=== PATIENT | female | born 1970 | race Caucasian/White ===

== ENCOUNTER → 2018-12-05 | Outpatient (CLI) | payer OTHER ==
--- NOTE | 2018-12-06 17:56 | RAD ---
DATE: 12/05/2018 EXAM: MAMMO ULISES SCREENING BILATERAL HISTORY: Routine screening COMPARISON: 02/11/2011 mammographic exam This study was interpreted with the benefit of Computerized Aided Detection (CAD). Breast Density: FATTY The breast parenchyma is primarily fatty replaced. Breast parenchyma level density A. FINDINGS: No suspicious mass or calcification cluster. No distortion. IMPRESSION: Stable BI-RADS CATEGORY: 1 NEGATIVE RECOMMENDED FOLLOW-UP: 12M 12 MONTH FOLLOW-UP PQRS compliance statement: Patient information was entered into a reminder system with a target due date in one year for the next mammogram. Mammography is a sensitive method for finding small breast cancers, but it does not detect them all and is not a substitute for careful clinical examination. A negative mammogram does not negate a clinically suspicious finding and should not result in delay in biopsying a clinically suspicious abnormality. "Our facility is accredited by the [employer] Mammography [employer]."
== END | disposition home or self-care (01) ==
LOC: MAMMO 08:01
PROVIDERS: ATTEND Family Medicine
DX: Z12.31 Encounter for screening mammogram for malignant neoplasm of breast (principal)
CPT/HCPCS: 77063; 77067

== ENCOUNTER → 2018-12-20 | Outpatient (CLI) | payer OTHER ==
[2018-12-20 08:25] LABS: BASO % 1 % (0-3); EOS # 0.5 x10^3/uL (0.0-0.7); EOS % 7 % (0-3); HEMATOCRIT 38.3 % (36.0-47.0); HEMOGLOBIN 13.1 g/dL (12.0-15.5); LYMPH # 1.6 x10^3/uL (1.0-4.8); LYMPH % 22 % (24-48); MEAN CORPUSCULAR HEMOGLOBIN 29 pg (25-35); MEAN CORPUSCULAR HGB CONC 34 g/dL (31-37); MEAN CORPUSCULAR VOLUME 85 fL (79-100); MONO # 0.5 x10^3/uL (0.0-1.1); MONO % 7 % (0-9); NEUT # 4.7 x10^3/uL (1.8-7.7); NEUT % 64 % (31-73); PLATELET COUNT 341 x10^3/uL (140-400); RED BLOOD COUNT 4.49 x10^6/uL (3.50-5.40); RED CELL DISTRIBUTION WIDTH 14.8 % (11.5-14.5); WHITE BLOOD COUNT 7.3 x10^3/uL (4.0-11.0)
[2018-12-20 08:42] LABS: ALBUMIN 3.8 g/dL (3.4-5.0); ALBUMIN/GLOBULIN RATIO 0.8 (1.0-1.7); CALCIUM 9.4 mg/dL (8.5-10.1); CREATININE 0.9 mg/dL (0.6-1.0); GFR 66.3; POTASSIUM 3.9 mmol/L (3.5-5.1); TOTAL BILIRUBIN 0.2 mg/dL (0.2-1.0); TOTAL PROTEIN 8.3 g/dL (6.4-8.2)
[2018-12-20 08:44] LABS: CHOLESTEROL/HDL RATIO 5.8
[2018-12-20 08:48] LABS: BILIRUBIN,URINE NEGATIVE (NEG); CLARITY,URINE CLEAR; COLOR,URINE YELLOW; NITRITE,URINE NEGATIVE (NEG); PROTEIN,URINE NEGATIVE (NEG-TRACE); UROBILINOGEN,URINE 0.2 mg/dL (0.2 mg/dL)
[2018-12-20 09:07] LABS: BACTERIA,URINE 0 /HPF (0-FEW); RBC,URINE RARE /HPF (0-2); WBC,URINE 0 /HPF (0-4)
[2018-12-20 09:08] LABS: SQUAMOUS EPITHELIAL CELL,UR FEW /LPF
== END | disposition home or self-care (01) ==
LOC: LAB 07:35
PROVIDERS: ATTEND Family Medicine
DX: R23.2 Flushing (principal); E78.00 Pure hypercholesterolemia, unspecified
CPT/HCPCS: 36415; 80053; 80061; 81001; 85025

== ENCOUNTER → 2018-12-25 | Outpatient (CLI) | payer OTHER | END | disposition home or self-care (01) | LOC: LAB 13:24 | PROVIDERS: ATTEND Family Medicine | DX: R23.2 Flushing (principal) | CPT/HCPCS: 36415; 84443 ==

== ENCOUNTER → 2019-01-17 | Outpatient (CLI) | payer OTHER ==
[~2019-01-17] MED LIST: CRESTOR40 MG PO; ESTR1TAB15 PO; MEDR2.5T28 PO
--- NOTE | 2019-01-17 17:28 | KCIC ---
Coronary artery calcium score dated January 17, 2019. No comparison available. Clinical Indication: Calcium screening. Hypercalcemia. Technical factors: Computed tomography of the heart was performed with ECG gating, suspended respiration and without the administration of contrast material. Post processing was performed on the 3-D computer workstation using diastolic phase images to measure the amount of coronary vascular calcium. Scoring was acquired using the Agatston Method. PQRS compliance Statement One or more of the following individualized dose reduction techniques were utilized for this study: 1. Automated exposure control 2. Adjustment of the mA and/or kV according to patient size 3. Use of iterative reconstruction technique Results: Thorax: No significant abnormality is identified in the lungs or mediastinum. Note that this CT exam is limited to the heart and adjacent structures. Coronary arteries: Left main coronary artery: 0. Left anterior descending coronary: 0. Left circumflex coronary artery: 0. Right coronary artery: 0. Posterior descending coronary artery: 0 Total coronary artery calcium score: 0 Information is based on an analysis of the coronary arteries only. Calcium deposits do not correspond directly to the percentage of narrowing of the arteries. They do correlate directly to the amount of coronary artery plaque and to the risk of future coronary artery disease. These calcium deposits usually begin to form years before any symptoms develop. Early detection and modification of risk factors, such as smoking and cholesterol intake, can slow the progress of coronary artery disease. A low score suggests a low likelihood of coronary artery disease, but does not exclude the possibility of significant coronary artery narrowing. The results should be discussed with your physician taking into account other risk factors such as age, gender, family history, diabetes, smoking or high cholesterol levels. Should you ever experience chest pain, difficulty breathing, discomfort radiating into your neck or arm, or discomfort combined with lightheadedness, sweating, fainting or nausea, you should seek prompt medical attention. CONCLUSION: Normal study, no coronary artery calcium identified. Electronically signed by: Donald Maynard MD (01/17/2019 5:25 PM) [id number]
== END | disposition home or self-care (01) ==
LOC: KCIC CT 15:35
PROVIDERS: ATTEND Internal Medicine Cardiovascular Disease
DX: E83.52 Hypercalcemia (principal)
CPT/HCPCS: 75571

== ENCOUNTER → 2019-02-23 | Day surgery (SDC) | payer OTHER ==
[~2019-02-23] MED LIST changes: +HYDROmorphone 2 MG/ML VIAL IV PRN; +IV RINGERS,LACTATED 1000ML 1,000 ML IV SCH; +LIDOCAINE 2% PF 5 ML VIAL. ONE; +MORPHINE SULFATE 2 MG/ML VIAL. IV PRN; +ONDANSETRON PF 4 MG/2 ML VIAL. IV PRN; +PROCHLORPERAZINE 10 MG/2 ML VIAL. IV PRN; +PROPOFOL 40 ML IV ONE; +fentaNYL PF VIAL 100 MCG/2 ML VIAL IV PRN
[2019-02-23 08:21] VITALS: BP 113/70
--- NOTE | 2019-02-27 09:07 | PATHOLOGY ---
[facility] Accession Number: [id number] . 01 Material submitted: . colon - ASCENDING COLON POLYP. Modifiers: ascending . 01 Clinical history: . CRCS . 02 Diagnosis: Colon biopsy, ascending colon polyp: - Hyperplastic polyp. - Few focally hyperplastic mucosal-associated lymphoid aggregates. . (JPM:papa/mml; 02/26/2019) QMS 02/26/2019 1630 Local . 02 Comment: There are no adenomatous changes or evidence of malignancy. . (JPM:mml; 02/26/2019) . 02 Electronically signed: . Jamaal Sharma MD, Pathologist NPI- [id number] . 01 Gross description: . Received in formalin labeled "Alexia Sampson, ascending colon polyp," is a single segment of sheehan soft tissue measuring 0.9 cm in maximum dimension. The specimen is entirely submitted in cassette A1. (TSD; 02/23/2019) TOB/TOB 02/26/2019 0957 Local . 02 Pathologist provided ICD-10: K63.5 . 02 CPT . 601817 Specimen Comment: A courtesy copy of this report has been sent to [phone], [phone] Specimen Comment: [id number] Specimen Comment: Report sent to / DR ASHLEY Performed at: 01 [facility] [address], [place] [id number] MD Flex Morales MD Phone: [phone] Performed at: 02 [facility] [address], [place] [id number] MD Jamaal Sharma MD Phone: [phone]
== END ==
LOC: ENDOS 06:31
PROVIDERS: ATTEND Internal Medicine Gastroenterology
DX: Z12.11 Encounter for screening for malignant neoplasm of colon (principal); K63.5 Polyp of colon; K64.0 First degree hemorrhoids; K21.9 Gastro-esophageal reflux disease without esophagitis; F15.90 Other stimulant use, unspecified, uncomplicated; E78.00 Pure hypercholesterolemia, unspecified; Z72.89 Other problems related to lifestyle
CPT/HCPCS: 45380; 88305; J2001; J2704

== ENCOUNTER → 2019-02-23 | Outpatient (CLI) | payer OTHER ==
[~2019-02-23] MED LIST changes: -HYDROmorphone 2 MG/ML VIAL IV PRN; -IV RINGERS,LACTATED 1000ML 1,000 ML IV SCH; -LIDOCAINE 2% PF 5 ML VIAL. ONE; -MORPHINE SULFATE 2 MG/ML VIAL. IV PRN; -ONDANSETRON PF 4 MG/2 ML VIAL. IV PRN; -PROCHLORPERAZINE 10 MG/2 ML VIAL. IV PRN; -PROPOFOL 40 ML IV ONE; -fentaNYL PF VIAL 100 MCG/2 ML VIAL IV PRN
[2019-02-23 10:13] LABS: CHOLESTEROL/HDL RATIO 3.9
== END | disposition home or self-care (01) ==
LOC: LAB 06:37
PROVIDERS: ATTEND Family Medicine
DX: E78.00 Pure hypercholesterolemia, unspecified (principal)
CPT/HCPCS: 36415; 80061; 84460

== ENCOUNTER → 2020-01-01 | Outpatient (CLI) | payer OTHER ==
[~2020-01-01] MED LIST changes: +ESTR-113 PO; -ESTR1TAB15 PO
--- NOTE | 2020-01-02 17:42 | RAD ---
BILATERAL SCREENING MAMMOGRAM, 3-D History: Routine screening. Comparison: 02/11/2011, 12/05/2018, 09/25/2009, 07/23/2008. Technique: MLO and CC digital tomosynthesis (3D) images obtained. Radiologist reviewed these images on dedicated workstation. Findings: Breast Tissue Density B : There are scattered areas of fibroglandular density. There are no dominant masses, suspicious microcalcifications, or architectural distortion. IMPRESSION: No mammographic evidence of malignancy. Recommend routine screening. BI-RADS category 1: Negative. The images were reviewed with computer-aided detection. Patient information is entered into reminder system with a target due date for the next screening mammogram. Mammography is the most sensitive method for finding small breast cancers, but it does not detect them all and is not a substitute for careful clinical examination. A negative mammogram does not negate a clinically suspicious finding and should not result in delay in biopsying a clinically suspicious abnormality. "Our facility is accredited by the [employer]ammography [employer]." Electronically signed by: Miah Ash MD (01/02/2020 5:39 PM) [id number]
== END | disposition home or self-care (01) ==
LOC: MAMMO 07:47
PROVIDERS: ATTEND Family Medicine
DX: Z12.31 Encounter for screening mammogram for malignant neoplasm of breast (principal)
CPT/HCPCS: 77063; 77067

== ENCOUNTER 2020-01-05 09:37 | Emergency (ER) | payer OTHER ==
[~2020-01-05] VITALS: Ht 172.7 cm; Wt 118.1 kg
[2020-01-05] MEDS ORDERED: FLUORESCEIN OPHTH TEST STRIP. OU ONE (10:00)
[2020-01-05] MEDS ORDERED: PROPARACAINE 0.5% OPHTH SOLUTION 15ML BOTTLE. OU ONE (10:00)
[2020-01-05] MEDS ORDERED: OLOP2.5D12 EACHEYE (10:22)
--- NOTE | 2020-01-05 10:22 | PHYS DOC ---
Past Medical History Past Medical History: High Cholesterol Past Surgical History: No Surgical History Smoking Status: Never Smoker Alcohol Use: Occasionally General Adult EDM: Chief Complaint: FOREIGN BODY/EYES HPI: HPI: Patient is a 49-year-old female presents with chief complaint of left eye irritation and redness. Patient states she is felt irritated left eye for the past several weeks. She states over the past week it has progressed. She notes that her eyes are somewhat itchy and worse when she blinks. She denies purulent discharge. Denies vision changes. Denies photophobia. Denies headache. Denies vomiting. Does note that she wears contacts but does not have them in a week. Denies any history of trauma to the eye. States that she tried to get into see her eye doctor but states that their clinic schedule was full. States that she does have environmental allergies and does take Claritin. No other complaints. Review of Systems: Review of Systems: Constitutional: Denies fever or chills. [] Eyes: Positive for red eye HENT: Denies nasal congestion or sore throat. [] Respiratory: Denies cough or shortness of breath. [] Cardiovascular: Denies chest pain or edema. [] GI: Denies abdominal pain, nausea, vomiting, bloody stools or diarrhea. [] : Denies dysuria. [] Musculoskeletal: Denies back pain or joint pain. [] Integument: Denies rash. [] Neurologic: Denies headache, focal weakness or sensory changes. [] Endocrine: Denies polyuria or polydipsia. [] Lymphatic: Denies swollen glands. [] Psychiatric: Denies depression or anxiety. [] Heart Score: Risk Factors: Risk Factors: DM, Current or recent (<one month) smoker, HTN, HLP, family history of CAD, obesity. Risk Scores: Score 0 - 3: 2.5% MACE over next 6 weeks - Discharge Home Score 4 - 6: 20.3% MACE over next 6 weeks - Admit for Clinical Observation Score 7 - 10: 72.7% MACE over next 6 weeks - Early Invasive Strategies Current Medications: Current Medications Medications (Trade) Dose Ordered Sig/Jose Start Time Stop Time Status Last Admin Dose Admin Fluorescein Sodium (Ful-Carole) 1 strip 1X ONCE 01/05/20 10:00 01/05/20 10:01 DC 9/26/20 09:56 1 STRIP Proparacaine HCl (Alcaine) 1 drop 1X ONCE 01/05/20 10:00 01/05/20 10:01 DC 01/05/20 09:56 1 DROP Allergies: Allergies: Allergies Coded Allergies Type Severity Reaction Last Updated Verified No Known Drug Allergies 02/23/19 No Physical Exam: PE: Constitutional: Well developed, well nourished, no acute distress, non-toxic appearance. [] HENT: Normocephalic, atraumatic, bilateral external ears normal, oropharynx moist, no oral exudates, nose normal. [] Neck: Normal range of motion, no tenderness, supple, no stridor. [] Cardiovascular:Heart rate regular rhythm, no murmur [] Lungs & Thorax: Bilateral breath sounds clear to auscultation [] Abdomen:soft, no tenderness, no masses, no pulsatile masses. [] Skin: Warm, dry, no erythema, no rash. [] Back: No tenderness, no CVA tenderness. [] Extremities: No tenderness, no cyanosis, no clubbing, ROM intact, no edema. [] Neurologic: Alert and oriented X 3, normal motor function, normal sensory function, no focal deficits noted. [] Psychologic: Affect normal, judgement normal, mood normal. [] EYES: 20/13 OD 20/13 OS 20/13 OU. There are no visual field deficits. Pupil OD: 3 to 2 OS 3 to 2 mm briskly reactive with no APD present, ERRLA. OS ophthalmic exam: The periorbital region without erythema or edema. There is no bony tenderness of the bone(s) of the orbital rim. There is no proptosis. There is mild blepharedema. The margins of the eyelid are intact without lacerations. The lacrimal system appears intact. EOMI without evidence of entrapment. Cornea is clear without hyphema or hypopyon. Conjunctiva is injected. There is no subco njunctival hemorrhage. Sclera intact without laceration. Jeevan sign under Bland lamp examination is negative. Fluorescein staining does not demonstrate abnormal uptake. No foreign bodies identified. Current Patient Data: Vital Signs: Vital Signs Date Time Temp Pulse Resp B/P (MAP) Pulse Ox O2 Delivery O2 Flow Rate FiO2 01/05/20 09:45 99.2 86 16 176/100 (125) 96 Room Air 99.2 EKG: EKG: [] Radiology/Procedures: Radiology/Procedures: [] Course & Med Decision Making: Course & Med Decision Making Pertinent Labs and Imaging studies reviewed. (See chart for details) [] Patient is a well-appearing 49-year-old female presents with chief complaint of red eye with watery discharge over the past several weeks. Initial vital signs unremarkable. Visual acuity normal. Patient's clinical signs and symptoms are potentially consistent with allergic conjunctivitis versus irritation from her contacts. No foreign body visualized. No corneal abrasion visualized. No red flag signs or symptoms regarding her eye pain. I do feel the patient is appropriate for discharge home with close follow-up with her eye doctor. She will be given a prescription for eyedrops to help with her symptoms. She was encouraged to continue take Claritin at home. Patient agreeable to this plan. Return precautions discussed and understood. Stable for discharge. Dragon Disclaimer: Dragon Disclaimer: This electronic medical record was generated, in whole or in part, using a voice recognition dictation system. Departure Departure Impression: Primary Impression: Conjunctivitis Qualified Codes: H10.402 - Unspecified chronic conjunctivitis, left eye Disposition: HOME, SELF-CARE Condition: STABLE Referrals: TONJA ASHLEY MD (PCP) Patient Instructions: Allergic Conjunctivitis Additional Instructions: Please follow-up with your eye doctor in the next week. Scripts Olopatadine Hcl (PATADAY) 2.5 Ml Drops 1 DROP EACHEYE DAILY, #2.5 ML 3 Refills Prov: CLARITZA MCCLENDON DO 01/05/20 Justicifation of Admission Dx: Justifications for Admission: Justification of Admission Dx: N/A CLARITZA MCCLENDON DO Jan 05, 2020 10:22
[2020-01-05 10:25] VITALS: BP 158/88
== END 2020-01-05 10:25 | disposition home or self-care (01) ==
LOC: ER 09:37
DX: H10.12 Acute atopic conjunctivitis, left eye (principal); E78.00 Pure hypercholesterolemia, unspecified
CPT/HCPCS: 99283

== ENCOUNTER → 2020-10-01 | Outpatient (CLI) | payer OTHER ==
[~2020-10-01] MED LIST changes: +OLOP2.5D12 EACHEYE
[2020-10-01 08:15] LABS: HEMATOCRIT 38.1 % (36.0-47.0); HEMOGLOBIN 12.9 g/dL (12.0-15.5); RED BLOOD COUNT 4.33 x10^6/uL (3.50-5.40); RED CELL DISTRIBUTION WIDTH 13.4 % (11.5-14.5); WHITE BLOOD COUNT 7.2 x10^3/uL (4.0-11.0)
[2020-10-01 08:42] LABS: ALBUMIN 3.9 g/dL (3.4-5.0); ALBUMIN/GLOBULIN RATIO 1.1 (1.0-1.7); CALCIUM 8.9 mg/dL (8.5-10.1); CREATININE 0.9 mg/dL (0.6-1.0); GFR 65.8; POTASSIUM 4.3 mmol/L (3.5-5.1); TOTAL BILIRUBIN 0.3 mg/dL (0.2-1.0); TOTAL PROTEIN 7.5 g/dL (6.4-8.2)
[2020-10-01 08:43] LABS: CHOLESTEROL/HDL RATIO 3.6
--- NOTE | 2020-10-01 10:54 | RAD ---
3 views left knee without comparison for pain. FINDINGS: There is no fracture, dislocation, or acute osseous abnormality. Mild osteophytosis of the medial compartment. No radiopaque foreign bodies. Incidentally noted are numerous varicose veins, whi ch may relate to deep or superficial venous insufficiency. If clinically warranted, consider deep and /or superficial venous duplex ultrasound. IMPRESSION: 1. No acute osseous abnormality. Mild medial compartmental osteoarthritis. 2. Numerous varicose veins, possibly related to deep and/or superficial venous insufficiency. If clin ically warranted consider further evaluation with deep and/or superficial venous ultrasound. Electronically signed by: Cliff Hall MD (10/01/2020 10:51 AM) [id number]
== END ==
LOC: LAB 07:35
PROVIDERS: ATTEND Family Medicine
DX: M17.12 Unilateral primary osteoarthritis, left knee (principal); Z00.00 Encounter for general adult medical examination without abnormal findings; I83.92 Asymptomatic varicose veins of left lower extremity; R23.2 Flushing; E78.00 Pure hypercholesterolemia, unspecified
CPT/HCPCS: 36415; 73562; 80053; 80061; 84443; 85027

== ENCOUNTER → 2021-04-07 | Outpatient (CLI) | payer OTHER ==
--- NOTE | 2021-04-07 08:52 | RAD ---
BILATERAL DIGITAL SCREENING 2-D AND 3-D MAMMOGRAM INDICATION: Routine screening. COMPARISON: Prior studies including one of 01/01/2020. Interpretation was made using CAD. FINDINGS: Breast Density: A RIGHT BREAST: No suspicious masses, calcifications or areas of architectural distortion are seen. LEFT BREAST: No suspicious masses, calcifications or areas of architectural distortion are seen. IMPRESSION: 1. No imaging evidence of malignancy. ASSESSMENT: BI-RADS 1. Negative. RECOMMENDATION: Routine annual screening mammogram. The facility will notify the patient of the results via mail. Patient information will be entered int o the mammography reminder system with a target recall date for the next mammogram. A reminder letter will be generated by the facility. Electronically signed by: Jose Mcknight Jr., MD (04/07/2021 8:49 AM) [id number]
== END ==
LOC: MAMMO 07:58
PROVIDERS: ATTEND Family Medicine
DX: Z12.31 Encounter for screening mammogram for malignant neoplasm of breast (principal)
CPT/HCPCS: 77063; 77067

== ENCOUNTER → 2021-05-11 | Outpatient (CLI) | payer OTHER | LOC: LAB 09:40 | PROVIDERS: ATTEND Internal Medicine Pulmonary Disease | DX: U07.1 COVID-19 (principal) | CPT/HCPCS: U0003; U0005 ==